=== PATIENT | female | born 1950 ===

== ENCOUNTER 2021-07-16 08:45 | Inpatient (IN) | payer OTHER ==
[2021-07-21] MEDS ORDERED: ULTRACET PO (09:23)
== END 2021-07-21 09:45 | disposition home or self-care (01) | DRG 330 ==
LOC: SURG 07-18 08:45 → O/R 07-18 10:00 → SURH 07-18 10:00 → SURG 07-18 15:00 → SURH 07-21 09:45
PROVIDERS: ADMIT Surgery; ATTEND Surgery
PROC: 07BC4ZZ Excision of Pelvis Lymphatic, Percutaneous Endoscopic Approach (ICD-10-PCS; 2021-07-18)
PROC: 0DTF4ZZ Resection of Right Large Intestine, Percutaneous Endoscopic Approach (ICD-10-PCS; principal; 2021-07-18 15:00)
DX: C7A.021 Malignant carcinoid tumor of the cecum (principal); C7B.01 Secondary carcinoid tumors of distant lymph nodes; D3A.8 Other benign neuroendocrine tumors; I10 Essential (primary) hypertension

== ENCOUNTER 2021-07-17 08:58 | Outpatient (CLI) | payer OTHER | END 2021-07-17 09:06 | disposition home or self-care (01) | LOC: TOM 08:58 | PROVIDERS: ATTEND Surgery | DX: D37.3 Neoplasm of uncertain behavior of appendix (principal); D3A.8 Other benign neuroendocrine tumors | CPT/HCPCS: 74177; Q9965 ==